=== PATIENT | female | born 1985 | race Caucasian/White ===

== ENCOUNTER 2023-12-17 19:22 | Emergency (ER) | payer OTHER ==
[2023-12-17 19:46] VITALS: BMI 40.0
[2023-12-17] MEDS ORDERED: IBUPROFEN 400 MG TABLET (FP) PO ONE (20:10)
[2023-12-17] MEDS: IBUPROFEN 400 MG TABLET (FP) PO ONE (20:22)
[2023-12-17] MEDS: IBUPROFEN 100 MG/5 ML UNIT DOSE CUPS PO ONE (20:23)
[2023-12-17] MEDS ORDERED: KETOROLAC TROMETHAMINE 30 MG/1 ML VIAL ONE (21:12)
[2023-12-17] MEDS: KETOROLAC TROMETHAMINE 30 MG/1 ML VIAL IM ONE (21:15)
[2023-12-17] MEDS ORDERED: KETAMINE HCL 200 MG/20 ML VIAL ONE (23:00)
[2023-12-17] MEDS: KETAMINE HCL 200 MG/20 ML VIAL IVPUSH ONE ×2 (23:40→23:57)
[2023-12-18 00:39] VITALS: BP 113/74; PULSE 58; RESP 16; TEMP 97.6
== END 2023-12-18 03:15 | disposition home or self-care (01) ==
LOC: JER 19:22
PROC: 3E030GC Introduction of Other Therapeutic Substance into Peripheral Vein, Open Approach (ICD-10-PCS; principal; 2023-12-17)
PROC: 3E030GC Introduction of Other Therapeutic Substance into Peripheral Vein, Open Approach (ICD-10-PCS; 2023-12-17)
DX: M25.551 Pain in right hip (principal); M25.561 Pain in right knee; D73.4 Cyst of spleen; W01.198A Fall on same level from slipping, tripping and stumbling with subsequent striking against other object, initial encounter
CPT/HCPCS: 71250-TC; 72170-TC-FY; 72192-TC; 73502-TC-RT-FY; 73552-TC-RT-FY; 73562-TC-RT-FY; 73590-TC-RT-FY; 73700-TC-RT; 99284-25